=== PATIENT | female | born 1950 | race Caucasian/White ===

== ENCOUNTER 2020-04-29 12:21 | Inpatient (IN) ==
[2020-04-29] MEDS ORDERED: ACETAMINOPHEN 325 MG TABLET PO PRN (12:26)
[2020-04-29] MEDS ORDERED: ONDANSETRON 4 MG/2 ML VIAL IV PRN (12:26)
[2020-04-29] MEDS ORDERED: DOCUSATE SODIUM 100 MG CAPSULE PO PRN (12:26)
[2020-04-29] MEDS ORDERED: SODIUM CHLORIDE 0.9% 1,000 ML IV SCH ×3 (12:30→21:00)
[2020-04-29] MEDS ORDERED: APIXABAN 5 MG TABLET PO SCH (13:00)
[2020-04-29] MEDS ORDERED: LIDOCAINE 1% 20 ML VIAL ONE ×2 (15:22→15:23)
[2020-04-29] MEDS ORDERED: HEPARIN/NACL 0.9% 2 UNITS/ML 1,000 ML IV ONE (15:22)
[2020-04-29] MEDS ORDERED: HEPARIN 5,000 UNIT/1 ML VIAL ONE ×2 (15:55→16:10)
[2020-04-29] MEDS ORDERED: HEPARIN DRIP 25,000 UNITS/500 ML PREMIX IV ONE (16:10)
[2020-04-29] MEDS ORDERED: HEPARIN DRIP 25,000 UNITS/500 ML PREMIX IV SCH (16:13)
[2020-04-29] MEDS ORDERED: HEPARIN/NACL 0.9% 2 UNITS/ML 500 ML IV ONE (16:28)
[2020-04-29] MEDS ORDERED: hydrALAZINE 20 MG/1 ML VIAL IV PRN (17:59)
[2020-04-29 18:30] LABS: Bilirubin,Urine Negative (Negative); Blood, Urine Small mg/dL (Negative); Glucose,Urine (UA) Negative (Negative); Ketones,Urine 5 mg/dL (Negative); Nitrite,Urine Negative (Negative); Protein,Urine 100 MG/DL; Urine Appearance CLEAR (Clear); Urine Color Yellow (Yellow); Urine Specific Gravity 1.055 (1.001-1.035); Urine Urobilinogen < 2.0 EU/DL (0.2-1.0)
[2020-04-29] MEDS ORDERED: hydrALAZINE 20 MG/1 ML VIAL IV ONE (18:38)
[2020-04-29 18:41] LABS: CKMB % 2.4 %
[2020-04-29 18:42] LABS: Troponin I 0.354 NG/ML (0.00-0.045)
[2020-04-29] MEDS ORDERED: LOSARTAN 50 MG TABLET PO ONE (18:58)
[2020-04-29] MEDS: CLORAZEPATE 7.5 MG TABLET PO PRN (20:38)
[2020-04-29] MEDS: MELOXICAM 7.5 MG TABLET PO SCH (20:39)
[2020-04-29] MEDS: SIMVASTATIN 10 MG TABLET PO SCH (20:39)
[2020-04-29] MEDS: ASCORBIC ACID 500 MG TABLET PO SCH (20:39)
[2020-04-29] MEDS: ZALEPLON 5 MG CAPSULE PO SCH (21:46)
[2020-04-29] MEDS: AZITHROMYCIN INJ 500 MG in SODIUM CHLORIDE 0.9% 250 ML IV SCH (21:56)
[2020-04-30 00:59] LABS: Basophils # 0.1 10*3/uL (0.0-0.2); Basophils % 0.5 % (0.0-0.8); Eosinophils % 0.4 % (0.00-10.9); Hematocrit 39.4 VOL% (35.7-47.0); Hemoglobin 13.5 GM/DL (12.0-16.0); Immature Granulocytes % 0.4 %; Immature Granulocytes Absolute 0.04 #; Lymphocytes # 1.7 10*3/uL (1.4-4.0); Lymphocytes % 16.3 % (21.3-54.2); Mean Corpuscular HGB Conc 34.3 GM/DL (32-36); Mean Corpuscular Volume 89.3 FL (87-102); Monocytes % 10.6 % (1.7-12.7); Neutrophils % 71.8 % (38.7-73.9); Platelet Count 194 T/CUMM (130-400); Red Blood Count 4.41 MC/CUMM (3.8-5.5); White Blood Count 10.4 T/CUMM (4-12)
[2020-04-30] MEDS ORDERED: SODIUM CHLORIDE 0.9% 1,000 ML IV SCH (01:00)
[2020-04-30 01:12] LABS: Albumin 2.4 G/DL (3.4-5.0); Bilirubin,Total 0.5 MG/DL (0.2-1.0); Osmolality,Calculated 283.4 MOS/KG (273-304); Potassium 4.1 MMOL/L (3.5-5.1); Total Protein 6.1 G/DL (6.4-8.3)
[2020-04-30] MEDS: ZALEPLON 5 MG CAPSULE PO SCH ×2 (01:26→21:48)
[2020-04-30] MEDS ORDERED: MORPHINE 4 MG/1 ML VIAL IV ONE (06:19)
[2020-04-30] MEDS: PANTOPRAZOLE 40 MG TABLET PO SCH (09:23)
[2020-04-30] MEDS: LOSARTAN 50 MG TABLET PO SCH (09:23)
[2020-04-30] MEDS: ASCORBIC ACID 500 MG TABLET PO SCH ×2 (09:23→21:49)
[2020-04-30] MEDS: MELOXICAM 7.5 MG TABLET PO SCH (09:23)
[2020-04-30] MEDS: CHOLECALCIFEROL 5,000 UNIT TABLET PO SCH (09:23)
[2020-04-30] MEDS: SIMVASTATIN 10 MG TABLET PO SCH (09:25)
[2020-04-30] MEDS: APIXABAN 5 MG TABLET PO SCH ×2 (09:25→21:49)
[2020-04-30] MEDS ORDERED: KETOROLAC 15 MG/1 ML VIAL IV ONE (09:47)
[2020-04-30] MEDS: CLORAZEPATE 7.5 MG TABLET PO PRN (09:56)
[2020-04-30] MEDS: BENZONATATE 100 MG CAPSULE PO PRN ×2 (12:23→23:07)
[2020-04-30] MEDS: DEXTROMETHORPHAN ER 6 MG/ML 90 ML/BOTTLE PO PRN ×2 (12:25→23:08)
[2020-04-30] MEDS: cefTRIAXone 1,000 MG in SYRINGE 1 EACH IV SCH (16:47)
[2020-04-30] MEDS: AZITHROMYCIN INJ 500 MG in SODIUM CHLORIDE 0.9% 250 ML IV SCH (21:49)
[2020-05-01 05:20] LABS: Basophils % 0.4 % (0.0-0.8); Eosinophils # 0.3 10*3/uL (0.0-0.87); Eosinophils % 2.8 % (0.00-10.9); Hematocrit 35.3 VOL% (35.7-47.0); Hemoglobin 11.9 GM/DL (12.0-16.0); Immature Granulocytes % 0.4 %; Immature Granulocytes Absolute 0.04 #; Lymphocytes % 10.6 % (21.3-54.2); Mean Corpuscular HGB Conc 33.7 GM/DL (32-36); Mean Corpuscular Volume 91.2 FL (87-102); Mean Platelet Volume 11.2 FL (9.6-12.0); Neutrophils % 74.8 % (38.7-73.9); Platelet Count 160 T/CUMM (130-400); Red Blood Count 3.87 MC/CUMM (3.8-5.5); Red Cell Distribution Width 13.1 % (9.3-17.3); White Blood Count 9.1 T/CUMM (4-12)
[2020-05-01 05:35] LABS: Calcium 7.9 MG/DL (8.5-10.1); Osmolality,Calculated 288.1 MOS/KG (273-304); Potassium 4.2 MMOL/L (3.5-5.1)
[2020-05-01] MEDS: ROSUVASTATIN 10 MG TABLET PO SCH (08:47)
[2020-05-01] MEDS: MELOXICAM 7.5 MG TABLET PO SCH (08:48)
[2020-05-01] MEDS: ASCORBIC ACID 500 MG TABLET PO SCH ×2 (08:48→22:26)
[2020-05-01] MEDS: APIXABAN 5 MG TABLET PO SCH ×2 (08:48→22:26)
[2020-05-01] MEDS: LOSARTAN 50 MG TABLET PO SCH (08:48)
[2020-05-01] MEDS: CHOLECALCIFEROL 5,000 UNIT TABLET PO SCH (08:49)
[2020-05-01] MEDS: PANTOPRAZOLE 40 MG TABLET PO SCH (08:49)
[2020-05-01] MEDS: DEXTROMETHORPHAN ER 6 MG/ML 90 ML/BOTTLE PO PRN (08:54)
[2020-05-01] MEDS: BENZONATATE 100 MG CAPSULE PO PRN ×2 (08:54→22:27)
[2020-05-01] MEDS: cefTRIAXone 1,000 MG in SYRINGE 1 EACH IV SCH (12:42)
[2020-05-01] MEDS ORDERED: INFLUENZA VIRUS VACCINE 0.5 ML SYRINGE IM ONE (19:19)
[2020-05-01] MEDS ORDERED: PNEUMOCOCCAL VACCINE (13 VALENT) 0.5 ML SYRINGE IM ONE (19:19)
[2020-05-01] MEDS: AZITHROMYCIN INJ 500 MG in SODIUM CHLORIDE 0.9% 250 ML IV SCH (22:26)
[2020-05-01] MEDS: ZALEPLON 5 MG CAPSULE PO SCH (22:26)
[2020-05-02 07:48] VITALS: BP 139/68
[2020-05-02] MEDS: MELOXICAM 7.5 MG TABLET PO SCH (09:04)
[2020-05-02] MEDS: APIXABAN 5 MG TABLET PO SCH (09:04)
[2020-05-02] MEDS: PANTOPRAZOLE 40 MG TABLET PO SCH (09:05)
[2020-05-02] MEDS: CHOLECALCIFEROL 5,000 UNIT TABLET PO SCH (09:05)
[2020-05-02] MEDS: LOSARTAN 50 MG TABLET PO SCH (09:05)
[2020-05-02] MEDS: ROSUVASTATIN 10 MG TABLET PO SCH (09:05)
[2020-05-02] MEDS: ASCORBIC ACID 500 MG TABLET PO SCH (09:05)
[2020-05-02] MEDS: BENZONATATE 100 MG CAPSULE PO PRN (09:08)
[2020-05-02] MEDS: cefTRIAXone 1,000 MG in SYRINGE 1 EACH IV SCH (14:01)
[2020-05-07] MEDS ORDERED: APIXABAN 5 MG TABLET PO SCH (09:00)
== END 2020-05-02 13:55 | disposition home health service (06) | DRG 163 ==
LOC: N.SDSINP 12:41 → N.ICU 17:45 → N.TELES 04-30 10:35
PROVIDERS: ADMIT Family Medicine; ATTEND Family Medicine